=== PATIENT | male | born 1960 | race Caucasian/White ===

== ENCOUNTER 2019-02-01 13:39 | Outpatient (CLI) | payer BC, MEDICARE ==
[2019-02-01 14:29] LABS: eGFR (Non-African) > 60
== END 2019-02-01 13:44 ==
LOC: LAB 13:39
PROVIDERS: ATTEND Internal Medicine Cardiovascular Disease
DX: I50.22 Chronic systolic (congestive) heart failure (principal)
CPT/HCPCS: 36415; 80048